=== PATIENT | female | born 1945 | race Caucasian/White ===

== ENCOUNTER 2024-05-11 13:39 | Outpatient (OUT) | payer MEDICARE, SELFPAY ==
--- NOTE | 2024-05-11 | XR_ITS ---
The [address] [address] Patient Name: PADMA ARMSTRONG MRN: [id number] date: 1945 Sex: F Assigned Patient Location: Current Patient Location: Accession/Order Number: [id number] Exam Date: 05/11/2024 13:53 Report Date: 05/12/2024 11:20 At the request of: JOSEPH BOJORQUEZ Procedure: XR knee LT 4V PROCEDURE: XR knee LT 4V HISTORY: LEFT KNEE PAIN COMPARISON: None. FINDINGS: BONES:Moderate narrowing of the medial joint space. Small-moderate size periarticular degenerative osteophytes involving all 3 compartments. Mild lateral subluxation of the tibial plafond in relation to the femoral condyles. SOFT TISSUES:No visible soft tissue swelling. EFFUSION:Small joint effusion. OTHER: Negative. XR/XR knee LT 4V IMPRESSION: 1. Moderate or greater degenerative joint disease predominantly involving the medial compartment, and small joint effusion. 2. No appreciable acute abnormality. Electronically authenticated by: JAVAD MELLO Date: 05/12/2024 11:20
== END 2024-05-11 13:40 | disposition home or self-care (01) ==
PROVIDERS: Visit Provider Student in an Organized Health Care Education/Training Program
DX: M25.562 Pain in left knee (principal)
CPT/HCPCS: 73564

== ENCOUNTER 2025-01-11 14:38 | Outpatient (OUT) | payer MEDICARE, SELFPAY ==
--- NOTE | 2025-01-11 | XR_ITS ---
The [place] [id number] Patient Name: PADMA ARMSTRONG MRN: [id number] date: 1945 Sex: F Assigned Patient Location: Current Patient Location: Accession/Order Number: [id number] Exam Date: 01/11/2025 16:06 Report Date: 01/11/2025 16:06 At the request of: JOSEPH BOJORQUEZ MD Procedure: XR hip RT 2V w/ pelvis Right hip 2 views with one view pelvis. Reason for exam: Chronic right hip pain for 6 months. COMPARISON: None. FINDINGS: Moderate degenerative changes of the right hip without acute bony process. Left hip demonstrates mild degenerative change. XR/XR hip RT 2V w/ pelvis IMPRESSION: Moderate degenerative changes of the right hip without acute bony process. Impression dictated by: Adrien Macedo Jr., D.O. 01/11/2025 4:06 PM Dictation Location: [place] [address] Electronically authenticated by: [id number] Y Date: 01/11/2025 16:06
== END 2025-01-11 14:39 | disposition home or self-care (01) ==
LOC: EC 14:39
PROVIDERS: Visit Provider Student in an Organized Health Care Education/Training Program
DX: M25.551 Pain in right hip (principal); M16.11 Unilateral primary osteoarthritis, right hip
CPT/HCPCS: 73502